=== PATIENT | female | born 1970 | race Caucasian/White ===

== ENCOUNTER → 2020-10-03 | Outpatient (CLI) | payer OTHER ==
[~2020-10-03] MED LIST: ALPRAZOLAM0.25 MG PO; AMBIEN10 MG PO; ATIVAN0.5 MG PO; CELEXA10 MG PO; LORAZEPAM0.5 MG PO; PAROXETINE10 MG PO; XANAX0.25 MG PO
== END ==
LOC: PT 11:12 → CARDREHAB 11:12 → EDSTATUS 11:16
DX: G47.30 Sleep apnea, unspecified (principal)
CPT/HCPCS: G0399

== ENCOUNTER → 2024-05-30 | Outpatient (CLI) | payer OTHER | LOC: RAD 10:12 | DX: R05.9 Cough, unspecified (principal); R50.9 Fever, unspecified ==